=== PATIENT | male | born 1970 | race Caucasian/White ===

== ENCOUNTER 2021-10-04 12:23 | Emergency (ER) | payer OTHER, SELFPAY ==
--- NOTE | ~2021-10-04 | XR_ITS ---
EXAMINATION: XR ribs LT 2V w CXR 2V EXAM DATE: 10/04/2021 12:40 INDICATION: Fell On Ice Monday, Left Anterior Rib Pain . TECHNIQUE: Frontal projection of the upper left ribs, frontal projection of the lower left ribs, obli que projection of the left ribs, frontal and lateral chest x-ray(s) for interpretation. Comparison is made to prior examination from 02/14/2019. FINDINGS: There are no displaced acute left rib fractures identified. Consider educating patient rafia t even if there is a radiographically occult nondisplaced rib fracture, there is no specific treatmen t other than to refrain from activity that prevents healing. There is no soft tissue abnormality seen . Mild thoracic dextroscoliosis. No confluent consolidation, pneumothorax or pleural effusion suspect ed. Cardiomediastinal silhouette is normal. IMPRESSION: No displaced left rib fractures. Reviewed, dictated and finalized at location B. [employer]
--- NOTE | 2021-10-04 12:29 | ED.UPPEXIN ---
HPI - Extremity Injury (Upper) General Chief Complaint: Extremity Injury, Upper Stated Complaint: FALL/L CHEST INJURY Time Seen by Provider: 10/04/21 12:36 Source: patient, RN notes reviewed and old records reviewed Mode of arrival: ambulatory Limitations: no limitations History of Present Illness HPI narrative: 51 year old male who [facility] with complaints of slipping on the ice on Monday night and caught self with left arm and hand. He reports that he has pain to the left pectoral muscle region of his left chest which goes to his axilla region. Yesterday he reports that area under his left axilla pain increased yesterday with movement of his left arm but today he doesn't have increase in pain with movement of his left arm. Patient has full ROM of his left arm and shoulder with no tingling or numbness voices or any pain., strong pulses present to his left arm. Patient reports that he has been taking Ibuprofen for his discomfort which has helped his pain, denies any pain with deep inspiration. Other injuries: chest (left CHEST PECTORAL AREA TO LEFT AXILLARY AREA) Related Data Home Medications Medication Instructions Recorded Confirmed No Home Medications 10/04/21 10/04/21 Allergies Allergy/AdvReac Type Severity Reaction Status Date / Time No Known Allergies Allergy Unverified 10/04/21 12:32 Review of Systems Review of Systems: CONSTITUTIONAL: Denies fever, chills, or sweats. EYES: Denies visual changes, redness, or discharge. ENT: Denies rhinorrhea, congestion, sore throat, or otalgia. CARDIOVASCULAR: Positive for left pectoral chest pain going into left axilla, no palpitations, or edema. RESPIRATORY: Denies cough or dyspnea. GASTROINTESTINAL: Denies abdominal pain, nausea, vomiting, or diarrhea. GENITOURINARY: Denies dysuria or hematuria. SKIN: Denies rash or itching. MUSCULOSKELETAL: Denies back pain, joint pain, or myalgia. NEUROLOGIC: Denies headache, numbness, or weakness. PSYCHIATRIC: Denies anxiety or depression. All systems reviewed & are unremarkable except as noted in HPI and below PMFSH Past Medical History Medical History (Updated 10/04/21 @ 12:56 by Annie Soria NP) Left wrist fracture Syncopal episodes Surgical History Surgical History (Updated 10/04/21 @ 12:41 by Annie Soria NP) History of tonsillectomy Social History Social History (Updated 10/04/21 @ 14:07 by Annie Soria NP) Smoking packs per day: 1 Smoking cigarettes per day: 20.0 Years smoked: 20 Smoking pack-years: 20.00 Smoking status: Current every day smoker Tobacco type: cigarettes Alcohol intake: current Substance use: never Gender identity (if verbalized by the patient): Male Comments At time of signature, agree with nursing past medical, surgical, social and family history. There is no relevant family history pertinent to the presenting complaint Exam Narrative: GENERAL: Well-appearing, well-nourished, and in no acute distress. HEAD: Normocephalic, atraumatic. EYES: PERRLA and EOMI. ENT: Nares clear, no rhinorrhea or epistaxis. Mucous membranes moist TM' normal with good light reflex, throat red with no lesions or exudates, no tonsils present.. NECK: Supple.no lymphadenopathy CHEST: Clear to auscultation. No respiratory distress.SAO2 100% on room air, tenderness to left pectoral region radiates to left axilla, no dyspnea, nausea or diaphoresis, no pain with deep inspiration, no cough or dyspnea noted. HEART: Regular rate and rhythm. No murmur heard. Normal peripheral pulses. ABDOMEN: Soft, nontender, nondistended, normal active bowel sounds. EXTREMITIES: Normal range of motion. No edema. SKIN: Warm, dry, no rash. NEURO: No focal deficits. Alert and oriented x3. Course Course Level of Care: Express Care Visit Vital Signs Vital signs: Vital Signs Temperature 36.8 C 10/04/21 12:40 Pulse Rate 95 10/04/21 12:40 Respiratory Rate 16 10/04/21 12:40 Blood Pressure
[2021-10-04 12:40] VITALS: BP 133/97; PULSE 95; RESP 16; TEMP 36.8; O2SAT 100
== END 2021-10-04 13:00 | disposition home or self-care (01) ==
PROVIDERS: Emergency Provider Registered Nurse
DX: S29.011A Strain of muscle and tendon of front wall of thorax, initial encounter (principal); W01.0XXA Fall on same level from slipping, tripping and stumbling without subsequent striking against object, initial encounter; F17.210 Nicotine dependence, cigarettes, uncomplicated
CPT/HCPCS: 71046; 71100; 99213; G0463

== ENCOUNTER 2021-11-03 08:16 | Outpatient (CLI) | payer OTHER, SELFPAY ==
--- NOTE | ~2021-11-03 | US_ITS ---
EXAMINATION: US aorta DATE: 11/03/2021 08:55 INDICATION: Abdominal aneurysm screening with risk factors of smoking and with family history of aneu rysm TECHNIQUE: Grayscale, color Doppler, and pulsed Doppler images of the aorta and common iliac arteries were obtained. COMPARISON: None. FINDINGS: The proximal aorta measures 2.2 cm AP. The mid aorta measures 1.9 cm. The distal aorta measures 1.6 c m AP. The right common iliac artery measures 1.2 cm. The left common iliac artery measures 1.2 cm. IMPRESSION: 1. Normal caliber abdominal aorta Reviewed, dictated and finalized at location A.
== END 2021-11-03 08:17 | disposition home or self-care (01) ==
DX: Z84.89 Family history of other specified conditions (principal)
CPT/HCPCS: 76775

== ENCOUNTER 2024-06-11 00:56 | Day surgery (SDC) | payer OTHER, SELFPAY ==
[2024-06-10 09:57] VITALS: BMI 22.8
--- NOTE | 2024-06-10 14:01 | P.PNAN_ITS ---
Anes - Initial Pre Proc Eval Procedure: Operation Date: 06/11/24 11:30 Proposed Procedures p Colonoscopy - Jaren Valenzuela MD Date/Time: 06/10/24 14:01 Surgeon: Jaren Valenzuela MD Pre Op Diagnosis: fecal abnormalities Patient Data Age: 54 Gender: M Height: 1.73 m Weight: 68.25 kg Allergies Allergy/AdvReac Type Severity Reaction Status Date / Time No Known Allergies Allergy Verified 06/11/24 10:35 Home Medications Medication Instructions Recorded Confirmed Type No Home Medications 10/04/21 06/11/24 History Patient hx anesthesia problems: none Family hx anesthesia problems: none Results Review: All pre-operative results and documents have been reviewed as part of the pre- operative evaluation. [facility] Past Medical History Medical History (Updated 10/05/21 @ 00:00 by Norman Nava) Left wrist fracture Syncopal episodes Surgical History Surgical History (Updated 10/04/21 @ 12:41 by Annie Soria NP) History of tonsillectomy Social History Social History (Updated 10/04/21 @ 14:07 by Annie Soria NP) Smoking packs per day: 1 Smoking cigarettes per day: 20.0 Years smoked: 20 Smoking pack-years: 20.00 Smoking status: Current every day smoker Tobacco type: cigarettes Alcohol intake: current Substance use: never Substance use type: does not use Living arrangements: with family Gender identity (if verbalized by the patient): Male Spiritual care concerns: No Anes - Eval Final PreProcedure Day of Procedure 06/10/24 14:01 Patient weight: normal Heart: regular rate and rhythm Lungs: clear to auscultation and normal air movement Airway: Mallampati scale class II Neurological: alert and oriented Last oral intake: >/= 8 hours ASA classification: II Emergent: no Anesthetic plan: proceed Anesthesia type and monitoring: general GIVS and standard monitoring Results Review: All pre-operative results and documents have been reviewed as part of the pre- operative evaluation. Informed Consent: The patient's anesthetic plan and its attendant risks and benefits were discussed with the patient/family/POA. Questions were solicited and answers provided to the satisfaction of the patient/family/POA.
[2024-06-11 10:36] VITALS: BP 115/78; PULSE 89; RESP 89; TEMP 36.2; O2SAT 100; BMI 20.7
[2024-06-11] MEDS: LACTATED RINGERS 1,000 ML 150 ML IV CONT (10:45)
--- NOTE | 2024-06-11 12:02 | PM.IMHP ---
H&P: HPI History of Present Illness Date/Time: 06/11/24 12:02 Chief Complaint: Screening colonoscopy Narrative: This is the patient's first colonoscopy. There are no GI symptoms and there is no family history of colorectal cancer. Review of Systems Review of Systems: All systems reviewed & are unremarkable except as noted in HPI and below [facility] Past Medical History Medical History (Updated 06/11/24 @ 12:02 by Jaren Valenzuela MD) Left wrist fracture Syncopal episodes Surgical History Surgical History (Updated 10/04/21 @ 12:41 by Annie Soria NP) History of tonsillectomy Social History Social History (Updated 10/04/21 @ 14:07 by Annie Soria NP) Smoking packs per day: 1 Smoking cigarettes per day: 20.0 Years smoked: 20 Smoking pack-years: 20.00 Smoking status: Current every day smoker Tobacco type: cigarettes Alcohol intake: current Substance use: never Substance use type: does not use Living arrangements: with family Gender identity (if verbalized by the patient): Male Spiritual care concerns: No Meds Home Medications and Allergies Home Medications Medication Instructions Recorded Confirmed Type No Home Medications 10/04/21 06/11/24 History Allergies Allergy/AdvReac Type Severity Reaction Status Date / Time No Known Allergies Allergy Verified 06/11/24 10:35 Vital Signs Vital Signs - 24 hr 06/11/24 10:36 Temperature 97.2 F L Pulse Rate 89 Respiratory Rate 89 H Blood Pressure 115/78 Pulse Oximetry 100 Oxygen Delivery Room Air Exam Const: General: cooperative and healthy appearing Resp: Effort & Inspection: normal respiratory effort and able to speak in complete sentences Auscultation: clear to auscultation bilaterally Cardio: Rate: regular rate Rhythm: regular rhythm GI: Inspection: normal to inspection GI Palp: No No hepatosplenomegaly present Auscultation: normal bowel sounds Rectal Exam: deferred Skin: General skin exam: normal color Psych: Appearance: grossly normal Mental Status: mental status grossly normal Assessment and Plan Assessment and plan (1) Screening for malignant neoplasm of colon: Code(s): Z12.11 - Encounter for screening for malignant neoplasm of colon Status: Acute Assessment and Plan: The patient is deemed a good candidate for the procedure. Consent signed. Will proceed.
[2024-06-11 12:35] VITALS: BP 96/54; PULSE 58; RESP 18; O2SAT 100
[2024-06-11 12:45] VITALS: BP 90/57; PULSE 62; RESP 20; O2SAT 100
[2024-06-11 12:55] VITALS: BP 100/49; PULSE 61; RESP 18; O2SAT 100
== END 2024-06-11 13:05 | disposition home or self-care (01) ==
PROVIDERS: Visit Provider Internal Medicine Gastroenterology
PROC: 0DJD8ZZ Inspection of Lower Intestinal Tract, Via Natural or Artificial Opening Endoscopic (ICD-10-PCS; CPT 45378; principal; 2024-06-11 11:30)
DX: Z12.11 Encounter for screening for malignant neoplasm of colon (principal); D12.3 Benign neoplasm of transverse colon; D12.4 Benign neoplasm of descending colon; D12.5 Benign neoplasm of sigmoid colon; F17.210 Nicotine dependence, cigarettes, uncomplicated; Z98.890 Other specified postprocedural states
CPT/HCPCS: 45385; 88305; J2003; J2704; J7120